=== PATIENT | male | born 1970 | race Caucasian/White ===

== ENCOUNTER → 2017-03-01 | Outpatient (CLI) | payer BC ==
--- NOTE | 2017-03-01 15:49 | EKG ---
FACILITY: [facility] - [place], [place] PATIENT NAME: TONY HAM : [id number] MR: [id number] V: [id number] EXAM DATE: ORDERING PHYSICIAN: JULIAN NAVARRO TECHNOLOGIST: REILLY Carrion Reason : ARM PAIN Blood Pressure : / mmHG Vent. Rate : 058 BPM Atrial Rate : 058 BPM P-R Int : 148 ms QRS Dur : 106 ms QT Int : 410 ms P-R-T Axes : 033 006 008 degrees QTc Int : 402 ms Sinus bradycardia Otherwise normal ECG When compared with ECG of 19-APR-2014 16:27, premature atrial complexes are no longer present Confirmed by HÉCTOR JACKSON ([id number]) on 03/02/2017 1:59:20 AM Referred By: RAMON Confirmed By:HÉCTOR JACKSON
== END ==
LOC: RESP 15:36
PROVIDERS: ATTEND Family Medicine
DX: R00.1 Bradycardia, unspecified (principal)
CPT/HCPCS: 93005

== ENCOUNTER → 2017-07-18 | Outpatient (CLI) | payer BC ==
--- NOTE | 2017-07-18 13:09 | RADIOLOGY IMAGING REPORT ---
FACILITY: [facility] PATIENT NAME: Benjie Jordan : 1970 MR: [id number] V: [id number] EXAM DATE: ORDERING PHYSICIAN: JULIAN NAVARRO TECHNOLOGIST: Location: [facility] - [place] Patient: Benjie Jordan : 1970 Visit/Account:[id number] Date of Sevice: 07/18/2017 EXAMINATION: Right shoulder radiographs 3 views Right clavicle radiographs 2 views HISTORY: Right shoulder pain, collar bone pain. Fall. COMPARISON: None. FINDINGS: Scapular Y, AP internal rotation and AP external rotation views of the right shoulder, and AP and AP angled views of the right clavicle are obtained. Bones: There is no acute fracture or dislocation. Joint spaces: Mild bony spurring of the AC joint. Hardware: None. Alignment: Normal. Soft tissues/visualized lungs: Negative. IMPRESSION: 1. No acute fracture or dislocation of the right shoulder. 2. No acute fracture of the right clavicle. 3. Mild right AC joint arthropathy. Report Dictated By: Neela Glover MD at 07/18/2017 12:26 PM Report E-Signed By: Neela Glover MD at 07/18/2017 1:06 PM WSN:[email or web address]
--- NOTE | 2017-07-18 13:10 | RADIOLOGY IMAGING REPORT ---
[place] [facility] [place]IENT NAME: Benjie Jordan : 1970 MR: [id number] V: [id number] EXAM DATE: ORDERING PHYSICIAN: JULIAN NAVARRO TECHNOLOGIST: [facility] Patient: Benjie Jordan : 1970 Visit/Account:[id number] Date of Sevice: 07/18/2017 EXAMINATION: Right shoulder radiographs 3 views Right clavicle radiographs 2 views HISTORY: Right shoulder pain, collar bone pain. Fall. COMPARISON: None. FINDINGS: Scapular Y, AP internal rotation and AP external rotation views of the right shoulder, and AP and AP angled views of the right clavicle are obtained. Bones: There is no acute fracture or dislocation. Joint spaces: Mild bony spurring of the AC joint. Hardware: None. Alignment: Normal. Soft tissues/visualized lungs: Negative. IMPRESSION: 1. No acute fracture or dislocation of the right shoulder. 2. No acute fracture of the right clavicle. 3. Mild right AC joint arthropathy. Report Dictated By: Neela Glover MD at 07/18/2017 12:26 PM Report E-Signed By: Neela Glover MD at 07/18/2017 1:06 PM WSN:[email or web address]
== END ==
LOC: RAD 11:44
PROVIDERS: ATTEND Family Medicine
DX: M19.011 Primary osteoarthritis, right shoulder (principal)